=== PATIENT | female | born 1990 | race American Indian/Alaskan Native ===

== ENCOUNTER 2018-02-03 11:29 | Emergency (ER) | payer MEDICAID ==
--- NOTE | 2018-02-03 11:35 | Emergency Department Report ---
HPI - General Time Seen by Provider: 02/03/18 11:32 - HPI HPI: 28-year-old female presents to the emergency department via EMS from home as a code stroke. Apparently the patient walked her son to the bus stop, around the corner, earlier today. Another son called the patient's mother and told her to calm and check on the patient as she was acting altered which included not talking and some signs of weakness and/or confusion. Mom found her this way, in bed, around 10:30 AM. At this time the last known well time is not completely known but is estimated to be around 7 AM. The patient is currently nonverbal and a poor historian. She does follow some commands. Unknown past medical history. She did not receive anything for her symptoms in route. Mom has now come bedside. She says that the patient walked to the bus stop between 6:30 and 7:00 AM this morning. The patient return to the house with some grass and dirt on her clothing saying that she had passed out on the way back. However the patient did get herself back home and was normal at that time. She then told mom that she was going to lay down and rest. Mom then saw the patient around 10 or 10:15 AM this morning having difficulty trying to get the patient's daughters clothes on her with the current neurological deficits. The patient apparently has a past medical history of diabetes and hypertension only when she is . ED Past Medical Hx - Past Medical History Hx Hypertension: Yes (uncontrolled HTN) Hx Heart Attack/AMI: No Hx Congestive Heart Failure: No Hx Diabetes: Yes (gdm last ) Hx Deep Vein Thrombosis: No Hx Liver Disease: No Hx Renal Disease: No Hx Sickle Cell Disease: No Hx Seizures: No Hx Asthma: No Hx COPD: No Hx HIV: No - Surgical History Hx Pacemaker: No Hx Internal Defibrillator: No Additional Surgical History: - Social History Smoking Status: Current Some Day Smoker - Medications Home Medications: Home Medications Medication Instructions Recorded Confirmed Last Taken Type No Known Home Medications [No 02/03/18 02/03/18 Unknown History Reported Home Medications] ED Review of Systems ROS: Stated complaint: POSS CVA Other details as noted in HPI Comment: Unobtainable due to pts medical conditions Physical Exam - Physical Exam Physical Exam: GENERAL: Patient is ill-appearing. HENT: Normocephalic. Atraumatic. Patient has moist mucous membranes. EYES: Patient appears to have a left-sided gaze preference but can't overcome it with some right-sided movement. Pupils equal reactive to light bilaterally. NECK: Supple. Trachea is midline. CHEST/LUNGS: Clear to auscultation. There is no respiratory distress noted. HEART/CARDIOVASCULAR: Regular. There is no tachycardia. There is no murmur. ABDOMEN: Abdomen is soft, nontender. Patient has normal bowel sounds. Morbidly obese habitus. SKIN: Skin is warm and dry. NEURO: Patient is awake but nonverbal. She will follow some but not all commands. Patient has right lower extremity weakness in the leg will fall back onto the gurney. There is mild right upper extremity drift but it does not hit the gurney. Difficult to assess facial asymmetry as the patient will not smile or talk. MUSCULOSKELETAL: There is no tenderness or deformity. There is no evidence of acute injury. ED Course - Reevaluation(s) Reevaluation #1: 02/03/18 11:37 NIHNIH Stroke Scale/Score (NIHSS) RESULT SUMMARY: 14 points NIH Stroke Scale INPUTS: 1A: Level of consciousness > 0 = Alert; keenly responsive 1B: Ask month and age > 2 = Aphasic 1C: 'Blink eyes' & 'squeeze hands' > 0 = Performs both tasks 2: Horizontal extraocular movements > 1 = Partial gaze palsy: can be overcome 3: Visual tao > 0 = No visual loss 4: Facial palsy > 1 = Minor paralysis (flat nasolabial fold, smile asymetry) 5A: Left arm motor drift > 1 = Drift, but doesn't hit bed 5B: Right arm motor drift > 0 = No drift for 10 seconds 6A: Left leg motor drift > 0 = No drift for 5 seconds 6B: Right leg motor drift > 2 = Drift, hits bed 7: Limb Ataxia > 0 = No ataxia 8: Sensation > 2 = Coma/unresponsive 9: Language/aphasia > 3 = Mute/global aphasia: no usable speech/auditory comprehension 10: Dysarthria > 2 = Mute/anarthric 11: Extinction/inattention > 0 = No abnormality - Consultations Consultation #1: 02/03/18 12:01 I spoke with the tele-medicine neurologist, Dr Wayne, who agrees that the patient is outside of the TPA window but we will pursue stat CT angiography of the head and neck. Consultation #2: 02/03/18 15:23 Patient was seen by the telemedicine neurologist again and says that she had a NIH stroke score of about 18. She listened to the CT angiography report and recommended the patient be transferred to [place] or [place]. I spoke with Dr. 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 He has excepted the patient for transfer and the patient will go to the eighth floor neuro ICU. ED Medical Decision Making - Lab Data Result diagrams: 02/03/18 11:20 02/03/18 11:20 - Radiology Data Radiology results: report reviewed CT scan of head without IV contrast: History: Near or deficits. Findings: Ventricles and normal in size and midline in location. 1 cm focal area of low attenuation right basal ganglia and 1.0 cm focal area of low attenuation left basal ganglia suggestive of chronic lacunar infarct. No evidence of acute ischemia or hemorrhage. No extra-axial fluid collection. Normal brainstem and cerebellum. Normal sinuses and mastoid air cells. Impression: No acute intracranial abnormality. Chronic lacunar infarct right and left basal ganglia . EXAM: CT ANGIO HEAD HISTORY: right sided weakness, CVA, aphasia TECHNIQUE: CTA of the Head and Neck with IV contrast. Coronal and sagittal reconstructed imaging provided. Carotid stenosis calculated by the NASCET method. PRIORS: None currently available. FINDINGS: Poor contrast effect may be related to the small and or hypoplastic vessels. HEAD: Anterior and posterior circulation vessels are small which may be congenital. Series 3:355-365 demonstrates irregularity both A1 and M1 segments. The right M1 segment is not completely visualized in this entirety. Although the posterior circulation vessels are small the posterior vessels appear relatively patent without any irregularity. NECK: RIGHT CAROTID: Origin: Small but patent. Common: Small but patent. Bifurcation: Small but patent. Internal: Hypoplastic without irregularity. External: Small but patent. There is no aneurysm, dissection, vascular malformation, or significant vascular stenosis. There is no evidence for vasculitis. LEFT CAROTID: Origin: Small but patent. Common: Small but patent. Bifurcation: Small but patent. Internal: Hypoplastic. Series 300:55 demonstrates focal area of narrowing with slight irregularity. External: Small but patent. VERTEBRALS: Left vertebral is dominant. Both vessels are hypoplastic. IMPRESSION: Poor contrast effect. Vessels within the neck and head are diffusely small or hypoplastic. Both A1 and M1 segments and in the mid left internal carotid artery demonstrate incomplete filling with irregularity. 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 Differential diagnosis would include areas of thrombi/emboli. Vasculitis favored. - Medical Decision Making Patient presented after she had a syncopal episode, then went home and went to bed and was found a few hours later with some neurological deficits as described above. Originally the patient came in and had a NIH stroke scale of about 14 due to some right-sided weakness, aphasia and gaze preference. However the patient's last known well time was around 7:15 AM and the patient came in outside of the TPA window. A stat CT angiography of the head and neck was done that was read by radiology as concern for vasculitis. Once again she was seen by telemedicine neurology who had an NIH stroke scale of about 18 at this point as the patient did start showing some facial asymmetry and worsening right arm weakness. 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 Attempted to fly the patient by helicopter but due to weather they are not flying but we were able to get a transportation ambulance to arrive lights and sirens within 15 minutes and the patient was transported to [facility]. The patient's mother was updated along the entire ED course and she understood regarding the labs, imaging and plan for transfer as well as the diagnosis. - Differential Diagnosis CVA, TIA, dysrhythmia, hypoglycemia Critical Care Time: Yes Critical care time in (mins) excluding proc time.: 35 Critical care attestation.: If time is entered above; I have spent that time in minutes in the direct care of this critically ill patient, excluding procedure time. Critical care time was spent on this patient and doing her initial evaluation, multiple re-evaluations, discussion with the radiologist, discussion with the patient's mother, discussion with the [facility] stroke attending, ordering and interpretation of labs and imaging. Critical Care Time: 35 minutes ED Disposition Clinical Impression: CVA (cerebral vascular accident) Qualifiers: CVA mechanism: unspecified Qualified Code(s): I63.9 - Cerebral infarction, unspecified Hypertension Qualifiers: Hypertension type: essential hypertension Qualified Code(s): I10 - Essential ( primary) hypertension UTI (urinary tract infection) Qualifiers: Urinary tract infection type: acute cystitis Hematuria presence: without hematuria Qualified Code(s): N30.00 - Acute cystitis without hematuria Disposition: DC/TX-70 ANOTHER TYPE [facility]THCARE Is pt being admited?: No Condition: Serious Instructions: Hypertension (ED) Referrals: PRIMARY CARE, [Primary Care Provider] - 3-5 Days Time of Disposition: 18:51
[2018-02-03 11:44] LABS: Basophils % (Auto) 0.5 % (0.0-1.8); Eosinophils # (Auto) 0.1 K/mm3 (0.0-0.4); Eosinophils % (Auto) 1.5 % (0.0-4.3); Hematocrit 31.7 % (30.3-42.9); Hemoglobin 9.7 gm/dl (10.1-14.3); Lymphocytes # (Auto) 1.6 K/mm3 (1.2-5.4); Lymphocytes % (Auto) 17.6 % (13.4-35.0); Mean Corpuscular HGB Conc 31 % (30-34); Monocytes # (Auto) 0.4 K/mm3 (0.0-0.8); Monocytes % (Auto) 4.6 % (0.0-7.3); Platelet Count 335 K/mm3 (140-440); Red Blood Count 4.73 M/mm3 (3.65-5.03); Red Cell Distribution Width 18.1 % (13.2-15.2)
[2018-02-03 11:47] LABS: INR 0.95 (0.87-1.13); Mean Corpuscular Hemoglobin 20 pg (28-32); Mean Corpuscular Volume 67 fl (79-97); Partial Thromboplastin Time 26.4 Sec. (24.2-36.6); Thrombin Time 14.7 Sec. (15.1-19.6)
[2018-02-03 11:51] LABS: BUN/Creatinine Ratio 10; Blood Urea Nitrogen 5 mg/dL (7-17); Calcium 8.9 mg/dL (8.4-10.2); Hemolysis Index 12
--- NOTE | 2018-02-03 11:51 | Cat Scan Report ---
CT scan of head without IV contrast: History: Near or deficits. Findings: Ventricles and normal in size and midline in location. 1 cm focal area of low attenuation right basal ganglia and 1.0 cm focal area of low attenuation left basal ganglia suggestive of chronic lacunar infarct. No evidence of acute ischemia or hemorrhage. No extra-axial fluid collection. Normal brainstem and cerebellum. Normal sinuses and mastoid air cells. Impression: No acute intracranial abnormality. Chronic lacunar infarct right and left basal ganglia . Dr. silva was informed of the findings at 11:35 AM on 02/03/18. 98N
[2018-02-03 11:53] LABS: Alanine Aminotransferase 6 units/L (7-56); Albumin 3.3 g/dL (3.9-5)
[2018-02-03 11:57] LABS: Bilirubin,Direct < 0.2 mg/dL (0-0.2)
[2018-02-03 13:01] LABS: Bacteria,Urine 4+ /HPF (Negative); Bilirubin,Urine NEG (Negative); Blood,Urine NEG (Negative); Color,Urine Yellow (Yellow); Hyaline Casts,Urine 3 /LPF; Mucus,Urine 2+ /HPF; Protein,Urine <15 mg/dL mg/dL (Negative)
[2018-02-03] MEDS ORDERED: ROCEPHIN/NS 1 GM/50 ML 1 GM/50 ML BAG IV ONE (13:12)
[2018-02-03] MEDS ORDERED: ASPIRIN PR ONE (13:47)
--- NOTE | 2018-02-03 14:30 | Cat Scan Report ---
FINAL REPORT EXAM: CT ANGIO NECK HISTORY: right sided weakness, CVA, aphasia TECHNIQUE: CTA of the Head and Neck with IV contrast. Coronal and sagittal reconstructed imaging provided. Carotid stenosis calculated by the NASCET method. PRIORS: None currently available. FINDINGS: Poor contrast effect may be related to the small and or hypoplastic vessels. HEAD: Anterior and posterior circulation vessels are small which may be congenital. Series 3:355-365 demonstrates irregularity both A1 and M1 segments. The right M1 segment is not completely visualized in this entirety. Although the posterior circulation vessels are small the posterior vessels appear relatively patent without any irregularity. NECK: RIGHT CAROTID: Origin: Small but patent. Common: Small but patent. Bifurcation: Small but patent. Internal: Hypoplastic without irregularity. External: Small but patent. There is no aneurysm, dissection, vascular malformation, or significant vascular stenosis. There is no evidence for vasculitis. LEFT CAROTID: Origin: Small but patent. Common: Small but patent. Bifurcation: Small but patent. Internal: Hypoplastic. Series 300:55 demonstrates focal area of narrowing with slight irregularity. External: Small but patent. VERTEBRALS: Left vertebral is dominant. Both vessels are hypoplastic. IMPRESSION: Poor contrast effect. Vessels within the neck and head are diffusely small or hypoplastic. Both A1 and M1 segments and in the mid left internal carotid artery demonstrate incomplete filling with irregularity. 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 Differential diagnosis would include areas of thrombi/emboli. Vasculitis favored. February 03, 2018 at 1120 PDT: I discussed the findings over phone with Dr. Leblanc.
[2018-02-03] MEDS ORDERED: APRESOLINE ONE (15:34)
[2018-02-03 15:40] VITALS: BP 172/101
== END 2018-02-03 15:44 | disposition other institution (70) ==
LOC: ED 11:29
DX: I63.9 Cerebral infarction, unspecified (principal); I10 Essential (primary) hypertension; N30.00 Acute cystitis without hematuria; F17.200 Nicotine dependence, unspecified, uncomplicated; Z88.8 Allergy status to other drugs, medicaments and biological substances
CPT/HCPCS: 36415; 51702; 70450; 70496; 70498; 80048; 80074; 81001; 82962; 84443; 84484; 84703; 85025; 85610; 85670; 85730; 93005; 93010; 96365; 99285; 99291; J0360; J0696; Q9967